=== PATIENT | male | born 1945 | race Caucasian/White ===

== ENCOUNTER 2021-12-18 13:33 | Inpatient (IN) | payer MEDICARE, BC ==
[2021-12-18] MEDS ORDERED: Ketorolac 30 MG/ML SDV IVPUSH STA (14:34)
[2021-12-18] MEDS ORDERED: Cyclobenzaprine 10 MG Tab PO ONE (14:34)
[2021-12-18] MEDS ORDERED: traMADol 50 MG Tab PO STA (14:35)
[2021-12-18 14:50] LABS: ESTIMATED GFR 52 mL/min (>60)
[2021-12-18 14:50] LABS: BASE EXCESS VENOUS,POC 0 mmol/L (-2 - 3+); PCO2 VENOUS,POC 35 mmHg (41-51); PH VENOUS,POC 7.44 pH Units (7.32-7.43)
[2021-12-18] MEDS ORDERED: Ondansetron 4 MG/2 ML SDV IV PRN (17:02)
[2021-12-18] MEDS ORDERED: Morphine 4 MG/ML VIAL IVPUSH PRN (17:11)
[2021-12-18] MEDS: Sodium Chloride 0.9% 1,000 ML IV SCH (18:29)
[2021-12-18] MEDS: tiZANidine 4 MG Tab PO SCH ×2 (18:53→20:48)
[2021-12-18] MEDS: Fluticasone NASAL Spray 16 GM Bottle NASBOTH SCH (18:54)
[2021-12-18] MEDS: Famotidine 20 MG Tab PO SCH (20:48)
[2021-12-18] MEDS: Baclofen 10 MG Tab PO SCH (20:48)
[2021-12-18] MEDS: Pravastatin 20 MG Tab PO SCH (20:48)
[2021-12-18] MEDS: Acetaminophen/HYDROcodone 325-5 MG Tab PO PRN (21:38)
[2021-12-19] MEDS: Acetaminophen/HYDROcodone 325-5 MG Tab PO PRN (01:43)
[2021-12-19] MEDS: tiZANidine 4 MG Tab PO SCH ×3 (01:43→20:07)
[2021-12-19 08:26] LABS: ESTIMATED GFR 52 mL/min (>60)
[2021-12-19] MEDS ORDERED: Potassium Chloride 10 MEQ Tab.ER PO SCH (09:00)
[2021-12-19] MEDS: Baclofen 10 MG Tab PO SCH ×4 (09:35→20:07)
[2021-12-19] MEDS: Lisinopril 10 MG Tab PO SCH (09:35)
[2021-12-19] MEDS: Sulfamethoxazole/Trimethoprim 800-160 MG Tab PO SCH ×2 (09:36→20:07)
[2021-12-19] MEDS: Sodium Chloride 0.9% 10 ML Syringe FLUSH PRN ×2 (10:22→13:23)
[2021-12-19] MEDS: Aspirin 81 MG Tab.EC PO SCH (12:32)
[2021-12-19] MEDS: Fluticasone NASAL Spray 16 GM Bottle NASBOTH SCH ×2 (12:32→17:42)
[2021-12-19] MEDS: Sodium Chloride 0.9% 1,000 ML IV SCH ×2 (13:24→21:48)
[2021-12-19] MEDS: Enoxaparin 40 MG/0.4 ML Syringe SUBCUT SCH (16:31)
[2021-12-19] MEDS: Pravastatin 20 MG Tab PO SCH (20:07)
[2021-12-19] MEDS: Famotidine 20 MG Tab PO SCH (20:07)
[2021-12-20] MEDS: tiZANidine 4 MG Tab PO SCH ×3 (01:55→20:21)
[2021-12-20] MEDS: Sodium Chloride 0.9% 1,000 ML IV SCH (05:38)
[2021-12-20 07:10] LABS: ESTIMATED GFR 63 mL/min (>60)
[2021-12-20] MEDS: Lisinopril 10 MG Tab PO SCH (09:31)
[2021-12-20] MEDS: Sulfamethoxazole/Trimethoprim 800-160 MG Tab PO SCH ×2 (09:32→20:21)
[2021-12-20] MEDS: Baclofen 10 MG Tab PO SCH ×4 (09:32→20:20)
[2021-12-20] MEDS: Aspirin 81 MG Tab.EC PO SCH (12:07)
[2021-12-20] MEDS: Menthol 10%/Methyl Salicylate 30% 85 GM Tube TOP PRN ×2 (13:17→19:10)
[2021-12-20] MEDS: Enoxaparin 40 MG/0.4 ML Syringe SUBCUT SCH (17:31)
[2021-12-20] MEDS: Fluticasone NASAL Spray 16 GM Bottle NASBOTH SCH ×2 (17:34→20:20)
[2021-12-20] MEDS: Famotidine 20 MG Tab PO SCH (20:21)
[2021-12-20] MEDS: Pravastatin 20 MG Tab PO SCH (20:21)
[2021-12-21] MEDS: Acetaminophen/HYDROcodone 325-5 MG Tab PO PRN (03:34)
[2021-12-21] MEDS: Menthol 10%/Methyl Salicylate 30% 85 GM Tube TOP PRN (03:40)
[2021-12-21 06:50] LABS: ESTIMATED GFR 63 mL/min (>60)
[2021-12-21] MEDS: tiZANidine 4 MG Tab PO SCH (08:26)
[2021-12-21] MEDS: Baclofen 10 MG Tab PO SCH (08:26)
[2021-12-21] MEDS: Lisinopril 10 MG Tab PO SCH (08:26)
[2021-12-21] MEDS: Sulfamethoxazole/Trimethoprim 800-160 MG Tab PO SCH (08:26)
[2021-12-21 09:12] VITALS: BP 172/76; PULSE 64
== END 2021-12-21 09:15 | DRG 565 ==
LOC: FB.ED 13:33 → FB.MS 17:02
PROVIDERS: ADMIT Emergency Medicine; ATTEND Student in an Organized Health Care Education/Training Program
DX: T79.6XXA Traumatic ischemia of muscle, initial encounter (principal); N30.00 Acute cystitis without hematuria; M62.82 Rhabdomyolysis; R29.6 Repeated falls; G12.23 Primary lateral sclerosis; N18.31 Chronic kidney disease, stage 3a; I25.10 Atherosclerotic heart disease of native coronary artery without angina pectoris; L98.491 Non-pressure chronic ulcer of skin of other sites limited to breakdown of skin; I12.9 Hypertensive chronic kidney disease with stage 1 through stage 4 chronic kidney disease, or unspecified chronic kidney disease; N18.9 Chronic kidney disease, unspecified; E78.5 Hyperlipidemia, unspecified; W19.XXXA Unspecified fall, initial encounter; Z95.5 Presence of coronary angioplasty implant and graft; Z87.891 Personal history of nicotine dependence; Z79.82 Long term (current) use of aspirin; Z79.899 Other long term (current) drug therapy; R06.02 Shortness of breath
CPT/HCPCS: 36415; 72100; 73521; 80048; 80053; 81001; 82550; 83880; 84484; 85025; 87086; 93005; 93010; 96374; 97162-GP; 97166-GO; 97530-GP; 99285; 99285-25; A9270-GY; J1650; J1885; J3490; J7030

== ENCOUNTER 2021-12-21 09:15 | Inpatient (IN) | payer MEDICARE, BC ==
[2021-12-21] MEDS ORDERED: Ondansetron 4 MG/2 ML SDV IV PRN (12:05)
[2021-12-21] MEDS: Aspirin 81 MG Tab.EC PO SCH (12:35)
[2021-12-21] MEDS: Baclofen 10 MG Tab PO SCH ×3 (12:35→21:08)
[2021-12-21] MEDS: Fluticasone NASAL Spray 16 GM Bottle NASBOTH SCH ×2 (17:06→21:07)
[2021-12-21] MEDS: tiZANidine 4 MG Tab PO SCH ×2 (17:06→21:10)
[2021-12-21] MEDS: Pravastatin 20 MG Tab PO SCH (21:09)
[2021-12-21] MEDS: Famotidine 20 MG Tab PO SCH (21:09)
[2021-12-21] MEDS: Sulfamethoxazole/Trimethoprim 800-160 MG Tab PO SCH (21:10)
[2021-12-21] MEDS: Menthol 10%/Methyl Salicylate 30% 85 GM Tube TOP PRN (21:18)
[2021-12-22] MEDS: tiZANidine 4 MG Tab PO SCH ×3 (09:22→20:37)
[2021-12-22] MEDS: Lisinopril 10 MG Tab PO SCH (09:23)
[2021-12-22] MEDS: Sulfamethoxazole/Trimethoprim 800-160 MG Tab PO SCH ×2 (09:23→20:37)
[2021-12-22] MEDS: Baclofen 10 MG Tab PO SCH ×4 (09:23→20:33)
[2021-12-22] MEDS: Menthol 10%/Methyl Salicylate 30% 85 GM Tube TOP PRN (09:27)
[2021-12-22] MEDS: Aspirin 81 MG Tab.EC PO SCH (11:21)
[2021-12-22] MEDS: Acetaminophen/HYDROcodone 325-5 MG Tab PO PRN (11:24)
[2021-12-22] MEDS: Fluticasone NASAL Spray 16 GM Bottle NASBOTH SCH ×2 (18:11→20:32)
[2021-12-22] MEDS: Famotidine 20 MG Tab PO SCH (20:33)
[2021-12-22] MEDS: Pravastatin 20 MG Tab PO SCH (20:34)
[2021-12-23] MEDS: Menthol 10%/Methyl Salicylate 30% 85 GM Tube TOP PRN (04:00)
[2021-12-23] MEDS: Acetaminophen/HYDROcodone 325-5 MG Tab PO PRN (04:09)
[2021-12-23] MEDS: tiZANidine 4 MG Tab PO SCH ×4 (08:04→20:33)
[2021-12-23] MEDS: Lisinopril 10 MG Tab PO SCH (08:04)
[2021-12-23] MEDS: Sulfamethoxazole/Trimethoprim 800-160 MG Tab PO SCH ×2 (08:04→20:33)
[2021-12-23] MEDS: Baclofen 10 MG Tab PO SCH ×4 (08:05→20:33)
[2021-12-23] MEDS: Aspirin 81 MG Tab.EC PO SCH (11:19)
[2021-12-23] MEDS: Fluticasone NASAL Spray 16 GM Bottle NASBOTH SCH ×2 (17:03→20:31)
[2021-12-23] MEDS: Pravastatin 20 MG Tab PO SCH (20:33)
[2021-12-23] MEDS: Famotidine 20 MG Tab PO SCH (20:33)
[2021-12-24] MEDS: Sulfamethoxazole/Trimethoprim 800-160 MG Tab PO SCH (08:25)
[2021-12-24] MEDS: Baclofen 10 MG Tab PO SCH ×4 (08:25→20:30)
[2021-12-24] MEDS: Lisinopril 10 MG Tab PO SCH (08:25)
[2021-12-24] MEDS: tiZANidine 4 MG Tab PO SCH ×3 (08:26→20:31)
[2021-12-24] MEDS: Acetaminophen/HYDROcodone 325-5 MG Tab PO PRN ×2 (08:29→20:36)
[2021-12-24] MEDS: Aspirin 81 MG Tab.EC PO SCH (12:24)
[2021-12-24] MEDS: Fluticasone NASAL Spray 16 GM Bottle NASBOTH SCH ×2 (18:29→20:29)
[2021-12-24] MEDS: Famotidine 20 MG Tab PO SCH (20:31)
[2021-12-24] MEDS: Pravastatin 20 MG Tab PO SCH (20:31)
[2021-12-24] MEDS: Menthol 10%/Methyl Salicylate 30% 85 GM Tube TOP PRN (20:33)
[2021-12-25] MEDS: Baclofen 10 MG Tab PO SCH ×4 (08:24→20:53)
[2021-12-25] MEDS: Lisinopril 10 MG Tab PO SCH (08:25)
[2021-12-25] MEDS: tiZANidine 4 MG Tab PO SCH ×3 (08:25→20:54)
[2021-12-25] MEDS: Aspirin 81 MG Tab.EC PO SCH (11:20)
[2021-12-25] MEDS: Fluticasone NASAL Spray 16 GM Bottle NASBOTH SCH ×2 (17:23→20:52)
[2021-12-25] MEDS: Famotidine 20 MG Tab PO SCH (20:54)
[2021-12-25] MEDS: Pravastatin 20 MG Tab PO SCH (20:55)
[2021-12-25] MEDS: Menthol 10%/Methyl Salicylate 30% 85 GM Tube TOP PRN (21:10)
[2021-12-26] MEDS: Baclofen 10 MG Tab PO SCH ×4 (08:38→23:09)
[2021-12-26] MEDS: tiZANidine 4 MG Tab PO SCH ×3 (08:38→23:10)
[2021-12-26] MEDS: Lisinopril 10 MG Tab PO SCH (08:44)
[2021-12-26] MEDS: Menthol 10%/Methyl Salicylate 30% 85 GM Tube TOP PRN ×2 (09:00→21:22)
[2021-12-26] MEDS: Aspirin 81 MG Tab.EC PO SCH (11:25)
[2021-12-26] MEDS: Fluticasone NASAL Spray 16 GM Bottle NASBOTH SCH ×2 (20:21→21:00)
[2021-12-26] MEDS: Acetaminophen/HYDROcodone 325-5 MG Tab PO PRN (21:20)
[2021-12-26] MEDS: Pravastatin 20 MG Tab PO SCH (23:09)
[2021-12-26] MEDS: Famotidine 20 MG Tab PO SCH (23:10)
[2021-12-27] MEDS: Lisinopril 10 MG Tab PO SCH (10:17)
[2021-12-27] MEDS: Baclofen 10 MG Tab PO SCH ×4 (10:18→21:56)
[2021-12-27] MEDS: tiZANidine 4 MG Tab PO SCH ×3 (10:18→21:57)
[2021-12-27] MEDS: Aspirin 81 MG Tab.EC PO SCH (11:39)
[2021-12-27] MEDS: Fluticasone NASAL Spray 16 GM Bottle NASBOTH SCH ×2 (17:36→21:56)
[2021-12-27] MEDS: Menthol 10%/Methyl Salicylate 30% 85 GM Tube TOP PRN (21:56)
[2021-12-27] MEDS: Famotidine 20 MG Tab PO SCH (21:57)
[2021-12-27] MEDS: Pravastatin 20 MG Tab PO SCH (21:57)
[2021-12-28] MEDS: Lisinopril 10 MG Tab PO SCH ×2 (06:49→09:52)
[2021-12-28] MEDS: Baclofen 10 MG Tab PO SCH ×4 (09:21→21:29)
[2021-12-28] MEDS: tiZANidine 4 MG Tab PO SCH ×3 (09:23→21:30)
[2021-12-28] MEDS: Aspirin 81 MG Tab.EC PO SCH (12:48)
[2021-12-28] MEDS: Fluticasone NASAL Spray 16 GM Bottle NASBOTH SCH ×2 (18:29→21:27)
[2021-12-28] MEDS: Menthol 10%/Methyl Salicylate 30% 85 GM Tube TOP PRN (21:27)
[2021-12-28] MEDS: Pravastatin 20 MG Tab PO SCH (21:29)
[2021-12-28] MEDS: Famotidine 20 MG Tab PO SCH (21:29)
[2021-12-28] MEDS: Acetaminophen/HYDROcodone 325-5 MG Tab PO PRN (21:32)
[2021-12-29] MEDS: Baclofen 10 MG Tab PO SCH ×4 (08:58→21:15)
[2021-12-29] MEDS: Lisinopril 10 MG Tab PO SCH (08:59)
[2021-12-29] MEDS: tiZANidine 4 MG Tab PO SCH ×3 (08:59→21:16)
[2021-12-29] MEDS: Aspirin 81 MG Tab.EC PO SCH (12:19)
[2021-12-29] MEDS: Fluticasone NASAL Spray 16 GM Bottle NASBOTH SCH ×2 (17:20→21:14)
[2021-12-29] MEDS: Pravastatin 20 MG Tab PO SCH (21:15)
[2021-12-29] MEDS: Famotidine 20 MG Tab PO SCH (21:15)
[2021-12-29] MEDS: Acetaminophen/HYDROcodone 325-5 MG Tab PO PRN (21:16)
[2021-12-29] MEDS: Menthol 10%/Methyl Salicylate 30% 85 GM Tube TOP PRN (21:17)
[2021-12-30 06:34] VITALS: BP 144/78; PULSE 52
[2021-12-30] MEDS: tiZANidine 4 MG Tab PO SCH ×3 (09:23→20:26)
[2021-12-30] MEDS: Lisinopril 10 MG Tab PO SCH (09:23)
[2021-12-30] MEDS: Baclofen 10 MG Tab PO SCH ×4 (09:23→20:25)
[2021-12-30] MEDS: Aspirin 81 MG Tab.EC PO SCH (11:51)
[2021-12-30] MEDS: Fluticasone NASAL Spray 16 GM Bottle NASBOTH SCH ×2 (18:10→20:25)
[2021-12-30] MEDS: Pravastatin 20 MG Tab PO SCH (20:26)
[2021-12-30] MEDS: Famotidine 20 MG Tab PO SCH (20:26)
[2021-12-30] MEDS: Acetaminophen/HYDROcodone 325-5 MG Tab PO PRN (20:27)
[2021-12-30] MEDS: Menthol 10%/Methyl Salicylate 30% 85 GM Tube TOP PRN (20:28)
[2021-12-31] MEDS ORDERED: Tuberculin, PPD 5 Units/0.1 ML 1 ML MDV IDERM ONE (09:00)
== END 2021-12-31 11:09 | DRG 948 ==
LOC: FB.MS 09:15
PROVIDERS: ADMIT Student in an Organized Health Care Education/Training Program; ATTEND Family Medicine
DX: R53.1 Weakness (principal); E78.5 Hyperlipidemia, unspecified; I25.10 Atherosclerotic heart disease of native coronary artery without angina pectoris; N18.31 Chronic kidney disease, stage 3a; L98.491 Non-pressure chronic ulcer of skin of other sites limited to breakdown of skin; I12.9 Hypertensive chronic kidney disease with stage 1 through stage 4 chronic kidney disease, or unspecified chronic kidney disease; R29.6 Repeated falls; E66.9 Obesity, unspecified; Z68.31 Body mass index [BMI] 31.0-31.9, adult; Z79.899 Other long term (current) drug therapy; Z79.82 Long term (current) use of aspirin; Z95.5 Presence of coronary angioplasty implant and graft
CPT/HCPCS: 97112-GP; 97530-GO; 97530-GP; A9270-GY